=== PATIENT | male | born 1940 | race African-American/Black ===

== ENCOUNTER 2018-10-27 14:15 | Inpatient (IN) | payer MEDICARE, OTHER ==
[~2018-10-27] VITALS: Ht 180.3 cm; Wt 67.1 kg
[~2018-10-27 14:15] MED LIST: ALBU6.7H9 IH; FELO10TA PO; OXYC30TA89 PO
[2018-10-27] MEDS ORDERED: ALBUTEROL (0.083%) 2.5MG/3ML NEB HHN STA (19:11)
[2018-10-27] MEDS ORDERED: IPRATROPIUM BROMIDE (0.02%) 0.5MG/2.5ML NEB HHN STA (19:11)
[2018-10-27 19:34] LABS: HEMOGLOBIN. 10.1 g/dL (14.0-18.0); MEAN CORPUSCULAR HEMOGLOBIN 37.6 pg (28.0-32.0); MEAN CORPUSCULAR VOLUME 107.9 fL (80.0-94.0); MEAN PLATELET VOLUME 9.1 fl (7.4-10.4); PLATELET 184 x1000/uL (130-400); RED BLOOD CELL COUNT 2.69 mill/uL (4.7-6.1); RED CELL DISTRIBUTION WIDTH 14.7 % (11.6-14.6)
[2018-10-27 19:39] LABS: CHLORIDE 107 mEq/L (98-107)
[2018-10-27 20:01] LABS: PLATELET ESTIMATE NORMAL
[2018-10-27] MEDS ORDERED: SODIUM CHLORIDE 0.9% 1,000 ML IV ONE (20:15)
[2018-10-27] MEDS ORDERED: KETOROLAC 30MG/ML VIAL IV ONE (21:15)
[2018-10-28] VITALS (12 sets, daily range): BP systolic 116–154; BP diastolic 39–124
[2018-10-28] MEDS ORDERED: MORPHINE SULFATE 4 MG/ML CPJ (NOT FOR IM USE) IV ONE (00:30)
[2018-10-28] MEDS ORDERED: METOCLOPRAMIDE HCL 10MG/2ML VIAL IV ONE (00:30)
[2018-10-28] MEDS ORDERED: ASPIRIN 81MG TABLET PO NR (01:45)
[2018-10-28] MEDS ORDERED: HYDROCODONE/ACETAMINOPHEN 5/325MG TABLET PO PRN (09:45)
[2018-10-28] MEDS ORDERED: GUAIFENESIN 200MG/10ML SUGAR FREE UDC PO PRN (09:45)
[2018-10-28] MEDS ORDERED: DOCUSATE SODIUM 100MG CAPSULE PO PRN (09:45)
[2018-10-28] MEDS ORDERED: ONDANSETRON HCL 4MG/2ML INJ IV PRN (09:45)
[2018-10-28] MEDS ORDERED: IPRATROPIUM/ALBUTEROL 0.5-3(2.5)MG/3ML NEB INH PRN (09:45)
[2018-10-28] MEDS ORDERED: CLONIDINE 0.1MG TABLET PO PRN (09:45)
[2018-10-28] MEDS ORDERED: ACETAMINOPHEN 325MG TABLET PO PRN (09:45)
[2018-10-28] MEDS: HYDROMORPHONE HCL/PF 2MG/ML CPJ IV PRN ×3 (11:20→21:06)
[2018-10-28] MEDS: AMLODIPINE 5MG TABLET PO SCH (11:21)
[2018-10-28] MEDS: ENOXAPARIN 40MG/0.4ML SYR SUBCUT SCH (11:21)
[2018-10-28] MEDS ORDERED: AMIODARONE HCL 150 MG in DEXT 5% WATER 100 ML IV SCH (13:00)
[2018-10-28] MEDS: CYCLOBENZAPRINE 10MG TABLET PO SCH ×2 (13:48→21:06)
[2018-10-28] MEDS: AMIODARONE HCL 900 MG in DEXT 5% WATER 482 ML IV SCH ×3 (14:25→14:34)
[2018-10-29] VITALS (11 sets, daily range): BP systolic 108–151; BP diastolic 51–85
[2018-10-29] MEDS: HYDROMORPHONE HCL/PF 2MG/ML CPJ IV PRN ×2 (04:23→11:32)
[2018-10-29] MEDS: CYCLOBENZAPRINE 10MG TABLET PO SCH ×3 (05:41→20:41)
[2018-10-29 07:31] LABS: HEMATOCRIT. 27.2 % (42.0-52.0); HEMOGLOBIN. 9.3 g/dL (14.0-18.0); MEAN CORPUSCULAR VOLUME 108.2 fL (80.0-94.0); MEAN PLATELET VOLUME 8.9 fl (7.4-10.4); PLATELET 183 x1000/uL (130-400); RED BLOOD CELL COUNT 2.51 mill/uL (4.7-6.1); RED CELL DISTRIBUTION WIDTH 14.7 % (11.6-14.6)
[2018-10-29 07:47] LABS: CHLORIDE 102 mEq/L (98-107)
[2018-10-29] MEDS: AMLODIPINE 5MG TABLET PO SCH (08:40)
[2018-10-29] MEDS: ENOXAPARIN 40MG/0.4ML SYR SUBCUT SCH (08:43)
[2018-10-29] MEDS ORDERED: POTASSIUM CHLORIDE 20MEQ TABLET SR PO SCH (09:00)
[2018-10-29] MEDS ORDERED: MAGNESIUM SULFATE 1GM/2ML VIAL IV ONE (09:00)
[2018-10-29] MEDS ORDERED: MAGNESIUM SULFATE 3 GM in SODIUM CHLORIDE 0.9% 100 ML IV SCH (11:00)
[2018-10-29] MEDS: MAGNESIUM OXIDE 400MG TABLET PO SCH ×2 (11:31→16:55)
[2018-10-29] MEDS: AMIODARONE HCL 200 MG TABLET PO SCH ×2 (11:31→20:41)
[2018-10-30] VITALS (9 sets, daily range): BP systolic 107–142; BP diastolic 44–98
[2018-10-30] MEDS: CYCLOBENZAPRINE 10MG TABLET PO SCH ×3 (05:41→21:01)
[2018-10-30 06:53] LABS: CHLORIDE 102 mEq/L (98-107)
[2018-10-30 06:56] LABS: HEMATOCRIT. 24.7 % (42.0-52.0); HEMOGLOBIN. 8.5 g/dL (14.0-18.0); MEAN CORPUSCULAR HEMOGLOBIN 37.4 pg (28.0-32.0); MEAN CORPUSCULAR VOLUME 107.9 fL (80.0-94.0); MEAN PLATELET VOLUME 8.6 fl (7.4-10.4); PLATELET 179 x1000/uL (130-400); RED BLOOD CELL COUNT 2.29 mill/uL (4.7-6.1); RED CELL DISTRIBUTION WIDTH 15.1 % (11.6-14.6)
[2018-10-30] MEDS: ENOXAPARIN 40MG/0.4ML SYR SUBCUT SCH (08:50)
[2018-10-30] MEDS: AMIODARONE HCL 200 MG TABLET PO SCH ×2 (08:50→21:01)
[2018-10-30] MEDS: AMLODIPINE 5MG TABLET PO SCH (08:51)
[2018-10-30] MEDS: MAGNESIUM OXIDE 400MG TABLET PO SCH ×2 (08:51→18:02)
[2018-10-30] MEDS ORDERED: POTASSIUM CHLORIDE 20MEQ TABLET SR PO SCH (10:45)
[2018-10-30 11:12] LABS: PLATELET ESTIMATE NORMAL
[2018-10-30 16:06] LABS: PLATELET ESTIMATE NORMAL
[2018-10-31] VITALS (7 sets, daily range): BP systolic 98–134; BP diastolic 35–70
[2018-10-31] MEDS: CYCLOBENZAPRINE 10MG TABLET PO SCH (05:22)
[2018-10-31 07:26] LABS: HEMATOCRIT. 25.6 % (42.0-52.0); MEAN CORPUSCULAR HEMOGLOBIN 37.8 pg (28.0-32.0); MEAN CORPUSCULAR VOLUME 106.9 fL (80.0-94.0); MEAN PLATELET VOLUME 8.1 fl (7.4-10.4); PLATELET 221 x1000/uL (130-400); RED BLOOD CELL COUNT 2.39 mill/uL (4.7-6.1); RED CELL DISTRIBUTION WIDTH 14.1 % (11.6-14.6)
[2018-10-31 07:57] LABS: CHLORIDE 107 mEq/L (98-107)
[2018-10-31] MEDS: ENOXAPARIN 40MG/0.4ML SYR SUBCUT SCH (09:00)
[2018-10-31] MEDS: MAGNESIUM OXIDE 400MG TABLET PO SCH (09:00)
[2018-10-31] MEDS: AMLODIPINE 5MG TABLET PO SCH (09:11)
[2018-10-31] MEDS: AMIODARONE HCL 200 MG TABLET PO SCH (09:12)
[2018-10-31 11:52] LABS: PLATELET ESTIMATE NORMAL
[2018-10-31] MEDS ORDERED: CALCIUM CARBONATE/VITAMIN D3 500MG TABLET PO SCH (13:30)
== END 2018-10-31 15:00 | disposition home or self-care (01) | DRG 552 ==
LOC: ER 14:15 → 5WST 10-28 01:37 → EDBEDREQ 10-28 01:39 → EDBEDREQTM 10-28 01:39 → ENRESERV 10-28 07:26 → 3WST 10-28 14:16
PROVIDERS: ADMIT Hospitalist; ATTEND Hospitalist
DX: M43.6 Torticollis (principal); C90.00 Multiple myeloma not having achieved remission; N17.9 Acute kidney failure, unspecified; M48.02 Spinal stenosis, cervical region; R33.9 Retention of urine, unspecified; M47.892 Other spondylosis, cervical region; Z91.040 Latex allergy status; D63.8 Anemia in other chronic diseases classified elsewhere; E83.42 Hypomagnesemia; E83.51 Hypocalcemia; E87.6 Hypokalemia; I11.9 Hypertensive heart disease without heart failure; I48.91 Unspecified atrial fibrillation; Z96.649 Presence of unspecified artificial hip joint; I49.3 Ventricular premature depolarization; J45.909 Unspecified asthma, uncomplicated; E80.6 Other disorders of bilirubin metabolism; Z82.49 Family history of ischemic heart disease and other diseases of the circulatory system; Z88.7 Allergy status to serum and vaccine; Z98.1 Arthrodesis status
CPT/HCPCS: 36415; 71045; 72141; 76705; 80048; 83735; 83880; 84443; 84484; 93005; 93306; 93970; 94640; 96361; 96374; 96375; 99285; J0282; J1170; J1650; J1885; J2270; J2765; J3475; J7030; J7050; J7060; J7611; J7620; L0172; A4315